=== PATIENT | male | born 1945 | race Caucasian/White ===

== ENCOUNTER 2017-02-05 13:13 | Emergency (ER) | payer MEDICARE, OTHER ==
[2017-02-05] MEDS ORDERED: Ondansetron 4 MG/2 ML SDV IVPUSH ONE (14:02)
[2017-02-05] MEDS ORDERED: HYDROmorphone 1 MG/ML Syringe IVPUSH ONE ×2 (14:02→15:01)
[2017-02-05] MEDS ORDERED: Sodium Chloride 0.9% 1,000 ML IV ONE (14:02)
[2017-02-05] MEDS ORDERED: Sodium Chloride 0.9% 10 ML Syringe FLUSH PRN (14:02)
--- NOTE | 2017-02-05 14:06 | EDM.PDOC ---
ED HPI GENERAL MEDICAL PROBLEM - General Chief Complaint: Abdominal Pain Stated Complaint: ABMDOMINAL AND BACK PAIN Time Seen by Provider: 02/05/17 13:54 Source of Information: Reports: Patient History Limitations: Reports: No Limitations - History of Present Illness INITIAL COMMENTS - FREE TEXT/NARRATIVE: Patient is a 71-year-old male who presents to the ED complaining of pain to the left lower quadrant and left flank that started about 3 hours ago. Patient describes the discomfort as a sharp dull achy sensation that waxes and wanes in intensity. He is not able to get comfortable. Has been nauseated with no emesis. He's had no similar symptoms in the past. States he's had no issues with having a bowel movement and/or urinating. There is no dysuria or hematuria present. BMs were loose with no blood present. Has felt mildly bloated/ distended. He has no history kidney stones. Left Lower Abdomen Pain Score (Numeric/FACES): 8 - Related Data Allergies Allergy/AdvReac Type Severity Reaction Status Date / Time No Known Allergies Allergy Verified 02/05/17 13:25 Home Meds: Home Meds Acetaminophen/HYDROcodone [[place] 325-5 MG] 1 tab PO Q6H PRN #15 tablet 02/05/17 [Rx] Drops For Glaucoma 02/05/17 [History] Ondansetron [Zofran ODT] 4 mg PO Q6H PRN #15 tab.dis 02/05/17 [Rx] Tamsulosin [Flomax] 0.4 mg PO PCBREAKFAST #10 cap.er 02/05/17 [Rx] Past Medical History HEENT History: Reports: Cataract, Glaucoma Social & Family History - Tobacco Use Smoking Status *Q: Never Smoker - Caffeine Use Caffeine Use: Reports: Coffee - Recreational Drug Use Recreational Drug Use: No ED ROS GENERAL - Review of Systems Review Of Systems: See Below Constitutional: Reports: Malaise, Decreased Appetite. Denies: Fever, Chills HEENT: Reports: No Symptoms Respiratory: Denies: Shortness of Breath, Cough, Sputum Cardiovascular: Denies: Chest Pain, Dyspnea on Exertion, Palpitations, PND GI/Abdominal: Reports: Abdominal Pain (Left lower quadrant), Diarrhea (Few episodes today), Decreased Appetite, Distension (Bloated), Nausea. Denies: Black Stool, Bloody Stool, Constipation, Flatus, Hematemesis, Hematochezia, Melena, Vomiting : Reports: Flank Pain (+). Denies: Discharge, Dysuria, Frequency, Hematuria, Urgency, Urinary Retention Musculoskeletal: Reports: Other (Left CVA) Skin: Reports: No Symptoms Neurological: Reports: No Symptoms ED EXAM, GI/ABD - Physical Exam Exam: See Below Exam Limited By: No Limitations General Appearance: Alert, WD/WN, Moderate Distress Ears: Hearing Grossly Normal Nose: Normal Inspection Throat/Mouth: Normal Voice, No Airway Compromise Neck: Normal Inspection, Supple Respiratory/Chest: No Respiratory Distress, Lungs Clear, Normal Breath Sounds, No Accessory Muscle Use, Chest Non-Tender Cardiovascular: Normal Peripheral Pulses, Regular Rate, Rhythm GI/Abdominal Exam: Soft, No Organomegaly, No Distention, Tender (Left lower quadrant/left flank), Abnormal Bowel Sounds (Hyperactive) (Male) Exam: Deferred, Other (Denies any pain into his scrotum) Rectal (Males) Exam: Deferred Back Exam: Normal Inspection. No: CVA Tenderness (L), CVA Tenderness (R) Extremities: Normal Inspection, Normal Range of Motion, Non-Tender, No Pedal Edema, Normal Capillary Refill Neurological: Alert, Oriented, CN II-XII Intact, Normal Cognition, No Motor/ Sensory Deficits Psychiatric: Normal Affect, Normal Mood Skin Exam: Warm, Dry, Intact, Normal Color Course - Vital Signs Last Recorded V/S: Last Vital Signs Temp 98.7 F 02/05/17 13:22 Pulse 77 02/05/17 13:22 Resp 12 02/05/17 13:22 BP 152/88 H 02/05/17 13:22 Pulse Ox 99 02/05/17 13:22 - Orders/Labs/Meds Labs: Laboratory Tests 02/05/17 02/05/17 02/05/17 Range/Units 13:50 13:50 14:55 WBC 7.90 (4.23-9.07) K/mm3 RBC 4.68 (4.63-6.08) M/mm3 Hgb 14.3 (13.7-17.5) gm/L Hct 42.7 (40.1-51.0) % MCV 91.2 (79.0-92.2) fl MCH 30.6 (25.7-32.2) pg MCHC 33.5 (32.2-35.5) g/dl RDW Std Deviation 45.3 H (35.1-43.9) fL Plt Count 194 (163-337) K/mm3 MPV 9.8 (9.4-12.3) fl Neut % (Auto) 83.9 H (34.0-67.9) % Lymph % (Auto) 11.1 L (21.8-53.1) % [place] % (Auto) 4.1 L (5.3-12.2) % Eos % (Auto) 0.4 L (0.8-7.0) Baso % (Auto) 0.4 (0.1-1.2) % Neut # (Auto) 6.63 H (1.78-5.38) K/mm3 Lymph # (Auto) 0.88 L (1.32-3.57) K/mm3 [place] # (Auto) 0.32 (0.30-0.82) K/mm3 Eos # (Auto) 0.03 L (0.04-0.54) K/mm3 Baso # (Auto) 0.03 (0.01-0.08) K/mm3 Sodium 140 (136-145) mEq/L Potassium 4.0 (3.5-5.1) mEq/L Chloride 103 (98-107) mEq/L Carbon Dioxide 29 (21-32) mEq/L Anion Gap 12.0 (5-15) BUN 23 H (7-18) mg/dL Creatinine 1.5 H (0.7-1.3) mg/dL Est Cr Clr Drug Dosing 50.30 mL/min Estimated GFR (MDRD) 46 (>60) mL/min BUN/Creatinine Ratio 15.3 (14-18) Glucose 127 H (80-115) mg/dL Calcium 9.0 (8.5-10.1) mg/dL Total Bilirubin 0.5 (0.2-1.0) mg/dL AST 30 (15-37) U/L ALT 41 (16-63) U/L Alkaline Phosphatase 57 (46-116) U/L C-Reactive Protein < 0.2 (<1.0) mg/dL Total Protein 7.2 (6.4-8.2) g/dl Albumin 4.1 (3.4-5.0) g/dl Globulin 3.1 gm/dL Albumin/Globulin Ratio 1.3 (1-2) Lipase 152 (73-393) U/L Urine Color Yellow (Yellow) Urine Appearance Clear (Clear) Urine pH 6.0 (5.0-8.0) Ur Specific [place] > or = 1.030 (1.005-1.030) Urine Protein Negative (Negative) Urine Glucose (UA) Negative (Negative) Urine Ketones 2+ H (Negative) Urine Occult Blood Negative (Negative) Urine Nitrite Negative (Negative) Urine Bilirubin Negative (Negative) Urine Urobilinogen 0.2 (0.2-1.0) Ur Leukocyte Esterase Negative (Negative) Urine RBC 0-5 (0-5) /hpf Urine WBC 0-5 (0-5) /hpf Ur Epithelial Cells 0-5 (0-5) /hpf Urine Bacteria Occasional (FEW) /hpf Urine Mucus Not seen (FEW) /hpf Meds: Medications Discontinued Medications Generic Name Dose Route Start Last Admin Trade Name Freq PRN Reason Stop Dose Admin Hydromorphone HCl 1 mg 02/05/17 14:02 02/05/17 14:10 Dilaudid IVPUSH 02/05/17 14:03 1 mg ONETIME ONE Administration Hydromorphone HCl 1 mg 02/05/17 15:01 02/05/17 15:21 Dilaudid IVPUSH 02/05/17 15:02 1 mg ONETIME ONE Administration Sodium Chloride 1,000 mls @ 250 mls/hr 02/05/17 14:02 02/05/17 14:08 Normal Saline IV 02/05/17 18:01 250 mls/hr ONETIME ONE Administration Ketorolac Tromethamine 15 mg 02/05/17 15:01 02/05/17 15:20 Toradol IVPUSH 02/05/17 15:02 15 mg ONETIME ONE Administration Ondansetron HCl 4 mg 02/05/17 14:02 02/05/17 14:10 Zofran IVPUSH 02/05/17 14:03 4 mg ONETIME ONE Administration Sodium Chloride 10 ml 02/05/17 14:02 02/05/17 14:11 Saline Flush FLUSH 10 ml ASDIRECTED PRN Administration Keep Vein Open Tamsulosin HCl 0.4 mg 02/05/17 15:01 02/05/17 15:22 Flomax PO 02/05/17 15:02 0.4 mg ONETIME ONE Administration - Re-Assessments/Exams Free Text/Narrative Re-Assessment/Exam: Peripheral IV ordered with normal saline, Dilaudid 1 mg IVP, and Zofran 4 mg IVP. Initial labs and studies include a CBC, chem 14, CRP, lipase, UA, and 2 view of the abdomen. 02/05/17 15:02 per nursing staff patient's pain is coming back. Ordered Dilaudid 1 mg IVP, flomax 0.4mg PO, and Toradol 50 mg IVP. 02/05/17 15:06 Labs reviewed: White blood cell count 7.90, hemoglobin 14.3, neutrophil percent is 83.9, neutrophil #6.63, sodium 140, potassium 4.0, creatinine elevated 1.5, glucose 127, CRP less than 0.2, lipase 152. UA pending. X-ray of the abdomen revealed copious amounts of stool within the right hemicolon. No sick air in stool patterns present. No acute findings noted. Ordered a CT the abdomen and pelvis without contrast renal stone protocol. 02/05/17 15:48 UA results: Ketones present. Otherwise normal. 02/05/17 16:44 CT the abdomen and pelvis and pression: 4.6 mm obstructing stone located within the proximal left ureter at the UPJ causing proximal hydronephrosis. Other incidental findings as described above. Patient is pain- free at this time will discharge patient home with instructions as documented. Departure - Departure Time of Disposition: 16:45 Disposition: Home, Self-Care 01 Condition: Good Clinical Impression: Kidney stone on left side - Discharge Information Prescriptions: Acetaminophen/HYDROcodone [[place] 325-5 MG] 1 tab PO Q6H PRN #15 tablet PRN Reason: Pain (Severe 7-10) Ondansetron [Zofran ODT] 4 mg PO Q6H PRN #15 tab.dis PRN Reason: Nausea/Vomiting Tamsulosin [Flomax] 0.4 mg PO PCBREAKFAST #10 cap.er Instructions: Abdominal Pain, Adult, [id number] Referrals: PCP,Not In Area [Primary Care Provider] - Forms: ED Department Discharge, ED Return to Work/School Form Additional Instructions: You have a 4.6 mm kidney stone close to the left kidney. This will take some time to pass. Will have you take Flomax 1 tab every day until stone passes. Push the fluids. For pain take ibuprofen and Tylenol in alternating fashion. For severe pain not controlled with these medications take [place] one tab every 6 hours. For nausea/vomiting take Zofran 1 tab every 6 hours. Follow-up with a urologist of your choice within the next week if stone has not passed. Return to the ED for any new or worsening symptoms. No driving this evening nor while taking the norco.
[2017-02-05] MEDS ORDERED: Ketorolac 30 MG/ML SDV IVPUSH ONE (15:01)
[2017-02-05] MEDS ORDERED: Tamsulosin 0.4 MG Cap.ER PO ONE (15:01)
--- NOTE | 2017-02-05 16:37 | CT ---
CT abdomen and pelvis Technique: Multiple axial sections were obtained from above the kidneys inferiorly through the pubic symphysis. Intravenous and oral contrast was not utilized. Findings: Small obstructing stone is identified within the proximal left ureter at the UPJ measuring approximately 4.6 mm in size. This stone causes proximal hydronephrosis as well as slight inflammatory change around the proximal left ureter. No additional ureteral calculi are seen. No renal calculi are seen. Visualized lung bases shows nothing acute. Liver and spleen have an unremarkable noncontrast CT appearance. Gallbladder shows no calcified gallstones. Adrenal glands show no nodule. Pancreas is within normal limits. Aorta shows atherosclerotic change without aneurysmal dilatation. No retroperitoneal adenopathy is seen. Appendix is seen and appears normal. No pelvic mass or adenopathy is seen. Mild diverticulosis is noted within the sigmoid colon without diverticulitis. Bone window settings were reviewed which shows severe disc space narrowing at L5-S1 with vacuum phenomena. Lesser disc space narrowing is seen within other portions of the lower thoracic and lumbar disks showing vacuum phenomena. Incidental limbus type vertebra noted within the anterosuperior endplate of L3. Impression: 1. 4.6 mm obstructing stone located within the proximal left ureter at the UPJ causing proximal hydronephrosis. 2. Other incidental findings as described above. Diagnostic code #3
--- NOTE | 2017-02-06 10:46 | CR ---
Abdomen: Supine and upright views of the abdomen was obtained. Comparison: No previous study. Slight degenerative change is scattered within the spine. No free air is seen. Bowel gas pattern is normal. Calcifications are seen within the pelvis which are felt to represent small phleboliths. Impression: 1. Incidental findings. Diagnostic code #2
== END 2017-02-05 17:40 | disposition home or self-care (01) ==
LOC: JD.ED 13:13
DX: N13.2 Hydronephrosis with renal and ureteral calculous obstruction (principal)
CPT/HCPCS: 36415; 74020; 74176; 80053; 81001; 83690; 85025; 86140; 96361; 96374; 96375; 96376; 99285; A9270; J1170; J1885; J2405; J7040; J7050; 99284